=== PATIENT | male | born 1975 | race Caucasian/White ===

== ENCOUNTER 2017-01-25 17:36 | Emergency (ER) | payer OTHER ==
[~2017-01-25 17:36] MED LIST: ALPRAZOLAM0.5 MG PO; CLARITIN 10MG T10 MG PO; FLEXERIL 10 MG10 MG PO; IBUPROFEN800 MG PO; LORTAB 5-325 M1 EACH PO; NEURONTIN 400400 MG PO; OFLOXACIN400 MG PO; PERCOCET 5-3251 EACH PO; TRAZODONE HCL50 MG PO; ZESTORETIC 10-1 EACH PO
[2017-01-25 19:35] LABS: HEMOGLOBIN 14.8 gm/dl (14.0-17.5); RED BLOOD COUNT 4.85 M/UL (4.20-5.50); WHITE BLOOD COUNT 7.6 K/UL (4.5-11.0)
[2017-01-25 19:48] LABS: BUN/CREATININE RATIO 23 (0-10)
== END 2017-01-25 21:50 | disposition home or self-care (01) ==
LOC: ER1 17:36
PROVIDERS: Emergency Medicine
DX: R10.12 Left upper quadrant pain (principal); D69.6 Thrombocytopenia, unspecified; F17.200 Nicotine dependence, unspecified, uncomplicated
CPT/HCPCS: 36415; 80053; 81001; 82150; 83690; 85025; 96361; 96374; 99284; J2270; J2405; J7050; Q9962